=== PATIENT | male | born 1935 | race Caucasian/White ===

== ENCOUNTER 2025-04-09 20:15 | Inpatient (IN) | payer MEDICARE ==
[~2025-04-09] VITALS: Ht 172.7 cm; Wt 73.5 kg
[~2025-04-09 20:15] MED LIST: ACET500 PO; AMOCLA875 PO; ASPI81CH PO; ATOR40TA PO; CLOP75 PO; DOCUZEN 8.6-501 EACH PO; FURO40 PO; Flomax0.4 MG PO; LEVO750 PO; Lisinopril2.5 MG; MIRALAX17 GM PO; NITR100 PO; Norco 5-325 Ta1 EACH PO; OMEG1CAP30; PANT20 PO; PANT40 PO; TAMS.4ER PO; VISBIOME 112.51 EACH PO
[2025-04-09] MEDS ORDERED: NS 500 ML IV SCH (20:40)
[2025-04-09 20:43] LABS: BASOPHILS ABSOLUTE AUTO 0.03 K/mm3 (0.00-0.23); BASOPHILS PERCENT AUTO 0 % (0-2); EOSINOPHILS ABSOLUTE AUTO 0.00 K/mm3 (0.00-0.68); EOSINOPHILS PERCENT AUTO 0 % (0-6); Hematocrit 35.4 % (37.0-53.0); Hemoglobin 12.1 g/dL (13.5-17.5); IMMATURE GRAN ABSOLUTE AUTO 0.26 K/mm3 (0.00-0.10); IMMATURE GRAN PERCENT AUTO 1 % (0-1); LYMPHOCYTES ABSOLUTE AUTO 0.50 K/mm3 (0.84-5.20); LYMPHOCYTES PERCENT AUTO 2 % (21-46); MONOCYTES ABSOLUTE AUTO 1.46 K/mm3 (0.16-1.47); MONOCYTES PERCENT AUTO 7 % (4-13); Mean Corpuscular HGB Conc 34.2 g/dL (31.5-36.5); Mean Corpuscular Volume 99 fL (80-100); NEUTROPHILS ABSOLUTE AUTO 19.01 K/mm3 (1.96-9.15); NEUTROPHILS PERCENT AUTO 89 % (41-73); NRBC ABSOLUTE 0.00 K/mm3 (0.00-0.02); NRBC Auto 0.0 /100 WBC (0.0-0.2); Platelet Count 313 K/mm3 (150-400); RDW Coefficient Variation 14.2 % (11.7-14.2); RDW Standard Deviation 51.6 fL (35.1-46.3)
[2025-04-09 21:15] LABS: Magnesium, Blood 2.2 mg/dL (1.6-2.4); Thyroid Stimulating Hormone 1.03 uIU/mL (0.360-4.800)
[2025-04-09 21:32] LABS: Anion Gap 10.0 mmol/L (3-11); Blood Urea Nitrogen 27.0 mg/dL (8-24); CO2, Blood 24.0 mmol/L (21-32); Calcium, Blood 8.9 mg/dL (8.5-10.1); Chloride, Blood 107.0 mmol/L (98-108); Creatinine, Blood 1.37 mg/dL (0.60-1.20); Glucose, Blood 132.0 mg/dL (70-99); Potassium, Blood 4.9 mmol/L (3.5-5.5); Sodium, Blood 136.0 mmol/L (136-145)
[2025-04-09 22:18] LABS: Source, Urine Clean Catch
[2025-04-09 23:03] LABS: Bilirubin, Urine Neg (Neg); Color, Urine Yellow (P-Yellow); Glucose Qualitative, Urine Neg (Neg); Ketones, Urine 2+ (Neg); Leukocyte Esterase, Urine 3+ (Neg); Protein, Urine 3+ (Neg); Specific Gravity, Urine 1.020 (1.003-1.022); Urobilinogen, Urine NORM (Normal)
[2025-04-09] MEDS ORDERED: Doxycycline Hyclate 100 MG in Dextrose 5% 250 ML IV ONE (23:15)
[2025-04-09] MEDS ORDERED: CefTRIAXone Sodium 1,000 MG in NS 100 ML IV ONE (23:15)
[2025-04-09 23:23] LABS: White Blood Cells, Urine TNTC /hpf (0-5)
[2025-04-10] VITALS (7 sets, daily range): BP systolic 98–140; BP diastolic 52–63
[2025-04-10] MEDS ORDERED: NS 1,000 ML IV SCH (02:00)
[2025-04-10 04:51] LABS: BASOPHILS ABSOLUTE AUTO 0.02 K/mm3 (0.00-0.23); BASOPHILS PERCENT AUTO 0 % (0-2); EOSINOPHILS ABSOLUTE AUTO 0.00 K/mm3 (0.00-0.68); EOSINOPHILS PERCENT AUTO 0 % (0-6); Hematocrit 31.4 % (37.0-53.0); Hemoglobin 10.5 g/dL (13.5-17.5); IMMATURE GRAN ABSOLUTE AUTO 0.19 K/mm3 (0.00-0.10); IMMATURE GRAN PERCENT AUTO 1 % (0-1); LYMPHOCYTES ABSOLUTE AUTO 0.39 K/mm3 (0.84-5.20); LYMPHOCYTES PERCENT AUTO 2 % (21-46); MONOCYTES ABSOLUTE AUTO 0.86 K/mm3 (0.16-1.47); MONOCYTES PERCENT AUTO 5 % (4-13); Mean Corpuscular HGB Conc 33.4 g/dL (31.5-36.5); Mean Corpuscular Volume 100 fL (80-100); NEUTROPHILS ABSOLUTE AUTO 14.54 K/mm3 (1.96-9.15); NEUTROPHILS PERCENT AUTO 91 % (41-73); NRBC ABSOLUTE 0.00 K/mm3 (0.00-0.02); NRBC Auto 0.0 /100 WBC (0.0-0.2); Platelet Count 262 K/mm3 (150-400); RDW Coefficient Variation 14.2 % (11.7-14.2); RDW Standard Deviation 51.9 fL (35.1-46.3)
[2025-04-10 05:15] LABS: Alanine Aminotransfer (ALT/SGP 19.0 U/L (12-78); Albumin, Blood 2.3 g/dL (3.4-5.0); Albumin/Globulin Ratio 0.7 (0.8-1.8); Anion Gap 8.0 mmol/L (3-11); Aspartate Aminotrans (AST/SGOT 27.0 U/L (12-37); Bilirubin, Total 0.5 mg/dL (0.1-1.0); Blood Urea Nitrogen 28.0 mg/dL (8-24); CO2, Blood 25.0 mmol/L (21-32); Calcium, Blood 8.1 mg/dL (8.5-10.1); Chloride, Blood 104.0 mmol/L (98-108); Creatinine, Blood 1.3 mg/dL (0.60-1.20); Globulin, Blood 3.5 g/dL (2.2-4.0); Glucose, Blood 159.0 mg/dL (70-99); Potassium, Blood 4.2 mmol/L (3.5-5.5); Sodium, Blood 133.0 mmol/L (136-145); Total Protein, Blood 5.8 g/dL (6.4-8.2)
--- NOTE | 2025-04-10 06:44 | NUR ---
SHIFT SUMMAY; AFTER ADMIT AT 0330. PATIENT ABLE TO EAT A LIGHT MEAL. THEN, SLEPT SOUNDLY THE REST OF THE NIGHT. DID NOT TRY TO GET UP AND
[2025-04-10] MEDS ORDERED: Lactobacil 2-S.Thermo-Bifido 1 1 Cap PO SCH (09:00)
[2025-04-10] MEDS ORDERED: Enoxaparin 40 MG/0.4 ML SYR SC SCH (09:00)
--- NOTE | 2025-04-10 10:48 | NUR ---
OCCUPATIONAL THERAPY CAME AND GOT RN TO REPORT THAT PATIENT'S HEART RATE IS ALL OVER THE PLACE AND HIGH. PATIENT ASSESSED; SITTING IN CHAIR, ALERT, NO SIGNS OR SYMPTOMS OF DISTRESS. DENIES CHEST PAIN, SHORTNESS OF BREATH, DIZZINESS OR LIGHTHEADED. PATIENT DENIES HISTORY OF A FIB OR IRREGULAR HEART RATE. PATIENT BREATHING FAST, BUT STATES NO DIFFICULTY BREATHING. CALL MADE TO DR. ORLANDO AND ADVISED TO PUT PATIENT ON TELE. TELE ORDERED. VITALS OBTAINED.
--- NOTE | 2025-04-10 11:16 | NUR ---
TELE APPLIED TO PT WITH TECH REPORTING AFIB WITH RVR AT 133. WITHIN 5 MINUTES SR. OPERATIONS MANAGER REPORTED PT CONVERTING TO NSR AT 103. DR. ORLANDO NOTIFIED.
--- NOTE | 2025-04-10 12:04 | NUR ---
"Spiritual Care| Pt. request P.t is awake and sitting upin a chair. Pt. is pleasant. As a life review was facilitated this chaplai got called to a Trauma Team Activiation. Immediately afterward this marketing database consultant returned to the Pts. bedside, sat in a chair and continued with his life review. Pt. is pleasant, but does show some deficits occassionally when he froms his thoughts and words. Considered several matters of cate and belief. Pt. displayed evidence of trust during our visit. Prayed with the Pt. and Pt. also prayed. Pt. verbalized gratitude fo rhte spiritual care visit."
--- NOTE | 2025-04-10 17:50 | NUR ---
SHIFT SUMMARY: A&OX3-4, BUT CAN BE FORGETFUL AT TIMES. PLESANT AND COOPERATIVE WITH CARE PROVIDED. PT SEEN BY PT/OT TODAY FOR AN EVALUATION AND IS A 1 PERSON ASSIST TO GET UP OUT OF BED. INTERIANO CATHETER REMAINS IN PLACE AND IS DRAINING TO GRAVITY. URINE IS STILL VERY COUDY. PT HAD ONE CARDIAC EVENT TODAY, SEE PREVIOUS NOTE, AND IS NOW ON TELE. HAS REMAINED SINUS RHYTHM SINCE. CONTINUES TO DENY CHEST PAIN, SHORTNESS OF BREATH, AND GENERALIZED DISCOMFORT. LYING IN BED AT THIS TIME. BED IN THE LOWEST POSITION. CALL LT WITHIN REACH.
[2025-04-10] MEDS ORDERED: NS 250 ML IV PRN (20:10)
[2025-04-10] MEDS ORDERED: CefTRIAXone Sodium 1,000 MG in NS 100 ML IV SCH (21:00)
[2025-04-11] VITALS (7 sets, daily range): BP systolic 111–135; BP diastolic 58–80
[2025-04-11 04:45] LABS: BASOPHILS ABSOLUTE AUTO 0.02 K/mm3 (0.00-0.23); BASOPHILS PERCENT AUTO 0 % (0-2); EOSINOPHILS ABSOLUTE AUTO 0.04 K/mm3 (0.00-0.68); EOSINOPHILS PERCENT AUTO 0 % (0-6); Hematocrit 30.0 % (37.0-53.0); Hemoglobin 10.2 g/dL (13.5-17.5); IMMATURE GRAN ABSOLUTE AUTO 0.12 K/mm3 (0.00-0.10); IMMATURE GRAN PERCENT AUTO 1 % (0-1); LYMPHOCYTES ABSOLUTE AUTO 0.65 K/mm3 (0.84-5.20); LYMPHOCYTES PERCENT AUTO 4 % (21-46); MONOCYTES ABSOLUTE AUTO 1.71 K/mm3 (0.16-1.47); MONOCYTES PERCENT AUTO 10 % (4-13); Mean Corpuscular HGB Conc 34.0 g/dL (31.5-36.5); Mean Corpuscular Volume 99 fL (80-100); NEUTROPHILS ABSOLUTE AUTO 14.43 K/mm3 (1.96-9.15); NEUTROPHILS PERCENT AUTO 85 % (41-73); NRBC ABSOLUTE 0.00 K/mm3 (0.00-0.02); NRBC Auto 0.0 /100 WBC (0.0-0.2); Platelet Count 211 K/mm3 (150-400); RDW Coefficient Variation 14.0 % (11.7-14.2); RDW Standard Deviation 50.4 fL (35.1-46.3)
[2025-04-11 05:00] LABS: Anion Gap 10.0 mmol/L (3-11); Blood Urea Nitrogen 36.0 mg/dL (8-24); CO2, Blood 24.0 mmol/L (21-32); Calcium, Blood 8.1 mg/dL (8.5-10.1); Chloride, Blood 102.0 mmol/L (98-108); Creatinine, Blood 1.23 mg/dL (0.60-1.20); Glucose, Blood 111.0 mg/dL (70-99); Magnesium, Blood 2.1 mg/dL (1.6-2.4); Phosphorus, Blood 2.4 mg/dL (2.5-4.9); Potassium, Blood 4.0 mmol/L (3.5-5.5); Sodium, Blood 132.0 mmol/L (136-145)
--- NOTE | 2025-04-11 06:04 | NUR ---
SHIFT SUMMARY: Pt is admitted for urosepsis and is a full code. Is alert and able to make needs known. ADLs have been 1p but did not get out of bed. Denies pain or discomfort when asked. Iv to right AC is patent with dressing that is CDI. telly noted sinus in the 80s with no events. Cha in place and draining clear yellow urine.
[2025-04-11] MEDS ORDERED: Polyethylene Glycol 3350 17 gm PO SCH (09:00)
--- NOTE | 2025-04-11 09:54 | NUR ---
APPROX. [id number] ENTERED PATIENT ROOM AND NOTICED THAT HIS CONTINOUS PULSE OX WAS READING A HEART RATE OF 120-150'S. CALLED TELEMETRY TO VERIFY THE RHYTHM. TELE UNABLE TO CONFIRM IF SINUS OR A FIB. PATIENT ASYMPTOMATIC VITALS STABLE. CHANGED TELE LEADS AND CONFIRMED THAT PATIENT IS IN A FIB. HEART RATE ON ASCULATION WAS TACHY AND IRREGULAR. NOTIFIED DR. BAXTER.
[2025-04-11] MEDS ORDERED: NS 1,000 ML IV SCH (10:35)
[2025-04-11] MEDS ORDERED: Potassium Phosphate Dibasic 30 MM in Dextrose 5% 500 ML IV STA (10:57)
--- NOTE | 2025-04-11 16:40 | NUR ---
SHIFT SUMMARY: PATIENT WENT BACK INTO AFIB TODAY; SEE NURSE NOTE. PATIENT RECEIVED TWO DOSES OF ORAL DILTIAZEM THIS SHIFT. CURRENTLY A FIB IN THE 80'S. PATIENT IN HIS BED, VISITED WITH FAMILY TODAY, CALL LIGHT WITHIN REACH, NO SIGNS OR SYMPTOMS OF DISTRESS, PLAN OF CARE ONGOING.
--- NOTE | 2025-04-11 23:51 | NUR ---
NEW TELEPHONE ORDER RECEIVED FROM THE ON-CALL HOSPITALIST NP. BREAUX: BACLOFEN PO 5MG Q8HRS PRN. ENTERED TO [facility]Nvoice, SEE EMAR.
[2025-04-12 04:34] VITALS: BP 121/47
[2025-04-12 04:45] LABS: Hematocrit 29.4 % (37.0-53.0); Hemoglobin 10.2 g/dL (13.5-17.5); Mean Corpuscular HGB Conc 34.7 g/dL (31.5-36.5); Mean Corpuscular Volume 96 fL (80-100); NRBC ABSOLUTE 0.00 K/mm3 (0.00-0.02); NRBC Auto 0.0 /100 WBC (0.0-0.2); Platelet Count 252 K/mm3 (150-400); RDW Coefficient Variation 13.8 % (11.7-14.2); RDW Standard Deviation 48.9 fL (35.1-46.3)
[2025-04-12 05:09] LABS: Albumin, Blood 2.0 g/dL (3.4-5.0); Anion Gap 9 mmol/L (3-11); Blood Urea Nitrogen 30 mg/dL (8-24); CO2, Blood 23 mmol/L (21-32); Calcium, Blood 7.9 mg/dL (8.5-10.1); Chloride, Blood 102 mmol/L (98-108); Creatinine, Blood 1.06 mg/dL (0.60-1.20); Glucose, Blood 119 mg/dL (70-99); Magnesium, Blood 2.0 mg/dL (1.6-2.4); Phosphorus, Blood 2.8 mg/dL (2.5-4.9); Potassium, Blood 4.0 mmol/L (3.5-5.5); Sodium, Blood 130 mmol/L (136-145)
--- NOTE | 2025-04-12 05:15 | NUR ---
SHIFT SUMMARY NO ACUTE EVENTS DURING THIS SHIFT. PT DENIES PAIN AND DISCOMFORT, CP/PRESSURE. PT HAS INTERMITTENT HICCUPS, NEW ORDER FOR BACLOFEN PRN RECEIVED FROM THE ON-CALL HOSPITALIST. TELE A-FIB @77. PT HAD A MOMENT OF HR>117, PRN CARDIZEM ADMINISTERED ORDERED. HS BOWEL CARE MEDS ADMINISTERED, PT REPORTS PASSING GAS BUT NO BM FOR SEVERAL DAYS. PT IS A/O X3-4, [place], AND SOMETIMES FORGETFUL. PT IS ABLE TO MAKE HIS NEEDS KNOWN AND IS COOPERATIVE WITH CARE. CHRONIC INTERIANO DRAINING YELLOW COLOR URINE. BED AT THE LOWEST POSITION, CALL LIGHT W/I REACH. CONTINUOUS PULSE OX O2>95%, PT DENIES SOB.
[2025-04-12 07:19] VITALS: BP 124/62
[2025-04-12 11:17] VITALS: BP 141/63
[2025-04-12 15:29] VITALS: BP 131/57
--- NOTE | 2025-04-12 18:55 | NUR ---
SHIFT SUMMARY PATIENT ARRIVED TO MEDICAL FLOOR, PCU TRANSFER. A/O X4. NEW IV STARTED. DID NOT UNWRAP WOUND TO FOOT, DRESSING INTACT. UNDERSTANDS NPO AFTER MIDNIGHT.
[2025-04-12 19:37] VITALS: BP 149/56
--- NOTE | 2025-04-12 21:47 | NUR ---
FIRST DOSE BACLOFEN PRN 5MG ADMINISTERED BY CHIEF CLINICAL DIETITIAN TAMRA AT HS. PT WAS DESCRIBED THIS MED YESTERDAY FOR HICCUPS.
[2025-04-12 23:36] VITALS: BP 141/64
[2025-04-13 02:38] LABS: Source, Urine Clean Catch
[2025-04-13 02:43] LABS: Bilirubin, Urine Neg (Neg); Glucose Qualitative, Urine Neg (Neg); Ketones, Urine Neg (Neg); Leukocyte Esterase, Urine 3+ (Neg); Protein, Urine 2+ (Neg); Specific Gravity, Urine 1.010 (1.003-1.022); Urobilinogen, Urine NORM (Normal)
[2025-04-13 03:20] LABS: Color, Urine Yellow (P-Yellow); White Blood Cells, Urine 25-50 /hpf (0-5)
[2025-04-13 04:11] VITALS: BP 147/63
--- NOTE | 2025-04-13 04:26 | NUR ---
SHIFT SUMMARY NO ACUTE EVENTS DURING THIS SHIFT. PER SOUND ART INSTRUCTOR: PT REMAINS IN SR IN THE MID 80'S TO THIS SHIFT. PT DENIES CP/PRESSURE, AND DENIES GENERAL DISCOMFORT. PT UPSET THAT THE CHRONIC INTERIANO WAS REMOVED, HE WAS UNABLE TO VOID, AND THE INTERIANO WAS INSERTED BACK SOON AFTER, DURING PREVIOUS SHIFT. UA RESULTS PENDING. INTERMITTENT HICCUPS T/O THIS SHIFT. AT HS PAINT MIXER HAND ADMINISTERED FIRST DOSE OF BACLOFEN PRESCRIBED FOR HICCUPS. MILDLY EFECTIVE. VSS. BED AT THE LOWEST POSITION, CALL LIGHT W/I REACH. PT IS A/O X3-4, ABLE TO MAKE HIS NEEDS KNOWN AND COOPERATIVE WITH CARE.
[2025-04-13 05:05] LABS: Hematocrit 27.2 % (37.0-53.0); Hemoglobin 9.5 g/dL (13.5-17.5); Mean Corpuscular HGB Conc 34.9 g/dL (31.5-36.5); Mean Corpuscular Volume 96 fL (80-100); NRBC ABSOLUTE 0.00 K/mm3 (0.00-0.02); NRBC Auto 0.0 /100 WBC (0.0-0.2); Platelet Count 275 K/mm3 (150-400); RDW Coefficient Variation 13.9 % (11.7-14.2); RDW Standard Deviation 49.1 fL (35.1-46.3)
[2025-04-13 05:27] LABS: Anion Gap 9.0 mmol/L (3-11); Blood Urea Nitrogen 27.0 mg/dL (8-24); CO2, Blood 23.0 mmol/L (21-32); Calcium, Blood 8.0 mg/dL (8.5-10.1); Chloride, Blood 105.0 mmol/L (98-108); Creatinine, Blood 1.09 mg/dL (0.60-1.20); Glucose, Blood 113.0 mg/dL (70-99); Potassium, Blood 4.1 mmol/L (3.5-5.5); Sodium, Blood 133.0 mmol/L (136-145)
[2025-04-13 07:13] VITALS: BP 151/65
[2025-04-13] MEDS ORDERED: Diltiazem HCl 180 MG Cap.CD PO SCH (09:00)
[2025-04-13 12:00] VITALS: BP 149/62
[2025-04-13 14:47] VITALS: BP 144/56
--- NOTE | 2025-04-13 16:41 | NUR ---
SHIFT SUMMARY PATIENT ABLE TO SIT IN CHAIR FOR MEALS, WORK WELL WITH PHYSICAL AND OCCUPATIONAL THERAPY. ABLE TO FOLLOW DIRECTIONS AND USES CALL LIGHT APPROPRIATELY. HARD OF HEARING. STEADY WITH AMBULATION, 1 + WALKER. FORGETFUL AT TIMES. INTERIANO INTACT DRAINING FREELY TO GRAVITY. NO BM THIS SHIFT. CALL LIGHT IN REACH. ABLE TO MAKE NEEDS KNOWN.
[2025-04-13 19:11] LABS: MYOGLOBIN SERUM 896 ng/mL (<=72)
[2025-04-13 19:33] VITALS: BP 160/71
[2025-04-13 23:54] VITALS: BP 148/65
[2025-04-14 04:31] VITALS: BP 139/60
--- NOTE | 2025-04-14 04:58 | NUR ---
SHIFT SUMMARY: PT AOX4, [place], CALLS APPROPRIATELY AND ABLE TO MAKE NEEDS KNOWN. PT TOLERATING MEDICATIONS WELL, ONLY NEEDING SOME HELP WITH THE PROBIOTIC PILL. TAKEN OFF OF TELE PER ORDERS. NO ACUTE OVERNIGHT EVENTS. INTERIANO HAVING GOOD OUTPUT. PT COOPERATIVE IN CARE AND APPRECIATIVE. HAVING SOME GOOD PO INTAKE. NO BM THIS PM. PT IN BED RESTING, BED IN LOWEST POSITION, CALL LIGHT IN REACH. CONTINUING CARE.
[2025-04-14 05:10] LABS: Hematocrit 28.7 % (37.0-53.0); Hemoglobin 9.8 g/dL (13.5-17.5); Mean Corpuscular HGB Conc 34.1 g/dL (31.5-36.5); Mean Corpuscular Volume 97 fL (80-100); NRBC ABSOLUTE 0.00 K/mm3 (0.00-0.02); NRBC Auto 0.0 /100 WBC (0.0-0.2); Platelet Count 316 K/mm3 (150-400); RDW Coefficient Variation 14.1 % (11.7-14.2); RDW Standard Deviation 50.4 fL (35.1-46.3)
[2025-04-14 05:29] LABS: Anion Gap 6.0 mmol/L (3-11); Blood Urea Nitrogen 26.0 mg/dL (8-24); CO2, Blood 26.0 mmol/L (21-32); Calcium, Blood 7.9 mg/dL (8.5-10.1); Chloride, Blood 107.0 mmol/L (98-108); Creatinine, Blood 1.09 mg/dL (0.60-1.20); Glucose, Blood 105.0 mg/dL (70-99); Potassium, Blood 4.2 mmol/L (3.5-5.5); Sodium, Blood 135.0 mmol/L (136-145)
[2025-04-14 07:15] VITALS: BP 139/60
[2025-04-14 15:25] VITALS: BP 130/63
--- NOTE | 2025-04-14 17:32 | NUR ---
SHIFT SUMMARY: PT A&O X4. PLEASANT AND COOPERATIVE WITH CARE. ONE PERSON ASSIST c FWW TO RESTROOM AND RECLINER. PT HAS CHRONIC INTERIANO IN PLACE DRAINING YELLOW URINE TO GRAVITY. WHILE WORKING WITH PT/OT, PT HR JUMPED TO 130'S - 150'S. PT ASYMPTOMATIC AT TIME OF TACHYCARDIA. PT ACCEPTED TO [facility] BUT AWAITING INSURANCE AUTH. CALL LIGHT IN REACH. BED IN LOWEST POSITION.
[2025-04-14 20:03] VITALS: BP 122/66
--- NOTE | 2025-04-15 05:06 | NUR ---
SHIFT SUMMARY A&OX4. ABLE TO MAKE ALL NEEDS KNOWN. INTERIANO CATHETER PATENT AND DRAINING TO GRAVITY. PT WAS ABLE TO TRANSFER WITH FWW AND 1 PERSON SBA FROM CHAIR TO BED AT START OF SHIFT. O2 SATS DROPPED FOR SHORT PERIOD OF TIME TO HIGH 80'S AND HOB ELEVATED. O2 SATS HAVE REMAINED IN MID TO HIGH 90'S EVER SINCE. PT HAS BEEN RESTING AND IS CURRENTLY SLEEPING IN BED AT LOWEST POSITION WITH CALL LIGHT WITHIN REACH.
[2025-04-15 05:39] VITALS: BP 138/64
[2025-04-15 08:06] LABS: CK TOTAL 923 U/L (39-308); CK-BB 0 % (0-0); CK-MACRO TYPE I 0 % (0-0); CK-MACRO TYPE II 0 % (0-0); CK-MB 0 % (0-4); CK-MM 100 % (96-100)
[2025-04-15 08:51] VITALS: BP 146/68
--- NOTE | 2025-04-15 16:29 | NUR ---
pPt. is awake and welcomes my visit. Pt. is pleasant and as we got re-aquainted we considered many matters of cate and belief. Pt is enaged and aware. Listen with interest and empathy. Pt. displayed evidence of trust. Prayed for the Pt. Pt. verbalized gratitude for the spiritual care visit.
--- NOTE | 2025-04-15 17:48 | NUR ---
SHIFT SUMMARY: PT A&O X4. PLEASANT AND COOPERATIVE WITH CARE. 1PA c FWW AND GB. PT/OT WORKED WITH PT THIS SHIFT. PER PHYSICAL THERAPY, PT IMPULSIVE WHEN WALKING. NO ACUTE CHANGES THIS SHIFT. PT STILL AWAITING D/C TO [facility]. AWAITING INSURANCE AUTH. INTERIANO IN PLACE DRAINING YELLOW URINE TO GRAVITY. CALL LIGHT IN REACH. BED IN LOWEST POSITION.
[2025-04-15 18:01] VITALS: BP 151/65
[2025-04-15 19:42] VITALS: BP 131/59
[2025-04-16 05:07] VITALS: BP 142/60
--- NOTE | 2025-04-16 06:46 | NUR ---
SHIFT SUMMARY: Pt is admitted for urosepsis and is a full code. Is alert and able to make needs known. ADLs have been SBA. denies pain or discomfort when asked. Cha is patent and draining clear yellow urine. IV to right forearm is patent with dressing that is CDI.
[2025-04-16 07:12] VITALS: BP 144/63
[2025-04-16 15:46] VITALS: BP 144/60
--- NOTE | 2025-04-16 19:27 | NUR ---
SHIFT SUMMARY CLIENT IS AOX4. MEDICATION COMPLIANT. NO COMPLAINTS OF PAIN THIS SHIFT. UP TO CHAIR FOR MEALS. BED IS IN LOW POSITION AND CALLIGHT IS WITHIN REACH
[2025-04-16 19:34] VITALS: BP 139/57
[2025-04-17 04:23] VITALS: BP 110/46
[2025-04-17 06:57] VITALS: BP 144/64
--- NOTE | 2025-04-17 11:08 | NUR ---
Pt. is awake in bed [facility] [employer] when he welcomes my visit. Pt. is pleasant. Pt. verbalizes the expectation that he will be transferring to [facility]. This clinical microbiologist provided encouragement and sought to normalize the Pt. experience. Pt. is unsettled by the prospect that he will ultimately be dicharged from [facility] with a cathater. Pt. welcomed prayer. Prayed with Pt. by the hand. Pt. verbalized gratitude for the spiritual care visit and prayer.
[2025-04-17] MEDS ORDERED: CIPR500 PO (11:18)
[2025-04-17] MEDS ORDERED: DILT180 PO (11:19)
--- NOTE | 2025-04-17 12:36 | NUR ---
PT DISCHARGED VIA MEDICAL TRANSPORT TO [facility]
--- NOTE | 2025-04-17 13:41 | NUR ---
DISCHARGE SUMMARY CLIENT AOX3-4. MEDICATION COMPLIANT. NO COMPLAINTS OF PAIN. DISCHARGE ORDERS RECEIVED. IV DISCONTINUED. CONT PULSE OX DISCONTINUED. MED LIST FAXED TO [facility]. CLIENT PROPERTY AND DISCHARGE PACKET GIVEN TO [facility] WIRE MILL OPERATOR. CLIENT OFF OF THE UNIT VIA WHEELCHAIR.
== END 2025-04-17 12:52 | DRG 698 ==
LOC: ER 20:15 → MEDS 20:16 → ENPENDDIS 04-17 10:53 → MEDS 04-17 12:52
PROVIDERS: Emergency Medicine; Internal Medicine; Student in an Organized Health Care Education/Training Program; ADMIT Student in an Organized Health Care Education/Training Program
PROC: 0T9B70Z Drainage of Bladder with Drainage Device, Via Natural or Artificial Opening (ICD-10-PCS; principal; 2025-04-10)
PROC: 3E03329 Introduction of Other Anti-infective into Peripheral Vein, Percutaneous Approach (ICD-10-PCS; 2025-04-10)
DX: T83.511A Infection and inflammatory reaction due to indwelling urethral catheter, initial encounter (principal); A41.9 Sepsis, unspecified organism; R65.20 Severe sepsis without septic shock; N17.9 Acute kidney failure, unspecified; E87.1 Hypo-osmolality and hyponatremia; E87.21 Acute metabolic acidosis; M62.82 Rhabdomyolysis; Y84.6 Urinary catheterization as the cause of abnormal reaction of the patient, or of later complication, without mention of misadventure at the time of the procedure; Y92.89 Other specified places as the place of occurrence of the external cause; Z87.442 Personal history of urinary calculi; I48.0 Paroxysmal atrial fibrillation; E83.39 Other disorders of phosphorus metabolism; N40.1 Benign prostatic hyperplasia with lower urinary tract symptoms; R33.8 Other retention of urine; Z91.81 History of falling; Z79.899 Other long term (current) drug therapy; R54 Age-related physical debility; Z51.5 Encounter for palliative care; I25.2 Old myocardial infarction; R62.7 Adult failure to thrive; Z68.25 Body mass index [BMI] 25.0-25.9, adult
CPT/HCPCS: 36415; 51702; 70450; 71045; 72125; 80048; 80053; 80069; 81001; 82550; 82552; 82607; 83605; 83735; 83874; 84100; 84439; 84443; 85025; 85027; 87040; 87077; 87086; 87186; 93005; 93010; 93306; 94762; 96361; 96365; 96366; 96367; 96372; 97110; 97112; 97116; 97161; 97165; 97530; 97535; 99285-25; A9270; G0378; J0696; J1650; J7030; J7050; J7060; L0160

== ENCOUNTER 2025-05-03 08:08 | Emergency (ER) | payer MEDICARE ==
[~2025-05-03] VITALS: Ht 182.9 cm; Wt 73.9 kg
[~2025-05-03 08:08] MED LIST changes: +CIPR500 PO; +DILT180 PO
[2025-05-03 08:37] LABS: Source, Urine Foley catheter
[2025-05-03 08:48] LABS: Bilirubin, Urine Neg (Neg); Glucose Qualitative, Urine Neg (Neg); Ketones, Urine Neg (Neg); Leukocyte Esterase, Urine 3+ (Neg); Protein, Urine 3+ (Neg); Specific Gravity, Urine 1.010 (1.003-1.022); Urobilinogen, Urine NORM (Normal)
[2025-05-03 08:57] LABS: Color, Urine Pale Yellow (P-Yellow)
[2025-05-03 08:58] LABS: Red Blood Cells, Urine 50-100 /hpf (0-2); White Blood Cells, Urine 50-100 /hpf (0-5)
[2025-05-03 10:00] LABS: BASOPHILS ABSOLUTE AUTO 0.03 K/mm3 (0.00-0.23); BASOPHILS PERCENT AUTO 0 % (0-2); EOSINOPHILS ABSOLUTE AUTO 0.04 K/mm3 (0.00-0.68); EOSINOPHILS PERCENT AUTO 0 % (0-6); Hematocrit 38.9 % (37.0-53.0); Hemoglobin 13.1 g/dL (13.5-17.5); IMMATURE GRAN ABSOLUTE AUTO 0.05 K/mm3 (0.00-0.10); IMMATURE GRAN PERCENT AUTO 1 % (0-1); LYMPHOCYTES ABSOLUTE AUTO 0.30 K/mm3 (0.84-5.20); LYMPHOCYTES PERCENT AUTO 3 % (21-46); MONOCYTES ABSOLUTE AUTO 1.01 K/mm3 (0.16-1.47); MONOCYTES PERCENT AUTO 10 % (4-13); Mean Corpuscular HGB Conc 33.7 g/dL (31.5-36.5); Mean Corpuscular Volume 97 fL (80-100); NEUTROPHILS ABSOLUTE AUTO 8.42 K/mm3 (1.96-9.15); NEUTROPHILS PERCENT AUTO 86 % (41-73); NRBC ABSOLUTE 0.00 K/mm3 (0.00-0.02); NRBC Auto 0.0 /100 WBC (0.0-0.2); Platelet Count 336 K/mm3 (150-400); RDW Coefficient Variation 14.3 % (11.7-14.2); RDW Standard Deviation 51.6 fL (35.1-46.3)
[2025-05-03 10:20] LABS: Alanine Aminotransfer (ALT/SGP 23.0 U/L (12-78); Albumin, Blood 3.2 g/dL (3.4-5.0); Albumin/Globulin Ratio 0.8 (0.8-1.8); Anion Gap 9.0 mmol/L (3-11); Aspartate Aminotrans (AST/SGOT 24.0 U/L (12-37); Bilirubin, Total 0.6 mg/dL (0.1-1.0); Blood Urea Nitrogen 13.0 mg/dL (8-24); CO2, Blood 25.0 mmol/L (21-32); Calcium, Blood 8.8 mg/dL (8.5-10.1); Chloride, Blood 99.0 mmol/L (98-108); Creatinine, Blood 1.1 mg/dL (0.60-1.20); Globulin, Blood 4.2 g/dL (2.2-4.0); Glucose, Blood 115.0 mg/dL (70-99); Potassium, Blood 4.3 mmol/L (3.5-5.5); Sodium, Blood 129.0 mmol/L (136-145); Total Protein, Blood 7.4 g/dL (6.4-8.2)
[2025-05-03] MEDS ORDERED: CefTRIAXone Sodium 1,000 MG in NS 100 ML IV ONE (10:40)
[2025-05-03] MEDS ORDERED: CIPR500 PO (10:43)
[2025-05-03] MEDS ORDERED: Ciprofloxacin 400MG/D5 200ML 200 ML IV ONE (10:45)
[2025-05-03 12:15] VITALS: BP 172/76
== END 2025-05-03 12:35 | disposition home or self-care (01) ==
LOC: ER 08:08
PROVIDERS: Student in an Organized Health Care Education/Training Program
DX: R33.9 Retention of urine, unspecified (principal); T83.511A Infection and inflammatory reaction due to indwelling urethral catheter, initial encounter; N39.0 Urinary tract infection, site not specified; Y84.6 Urinary catheterization as the cause of abnormal reaction of the patient, or of later complication, without mention of misadventure at the time of the procedure; R31.9 Hematuria, unspecified; R80.9 Proteinuria, unspecified; R82.998 Other abnormal findings in urine; E87.1 Hypo-osmolality and hyponatremia; D64.9 Anemia, unspecified; D72.820 Lymphocytosis (symptomatic); I25.2 Old myocardial infarction; I48.0 Paroxysmal atrial fibrillation; Z79.899 Other long term (current) drug therapy; Z79.82 Long term (current) use of aspirin
CPT/HCPCS: 51702; 80053; 81001; 83690; 85025; J0744

== ENCOUNTER → 2025-06-01 | Outpatient (CLI) | payer MEDICARE ==
[~2025-06-01] MED LIST changes: +ACET325 PO; +BISA10S PR; +DULCOLAX400 MG/5 M PO; +LOPE2C PO; +MYLANTA MAXIMUM10 ML PO; +ZINC OXIDE57 GM TOP
[2025-06-01 18:14] LABS: Bilirubin, Urine Neg (Neg); Glucose Qualitative, Urine Neg (Neg); Ketones, Urine Neg (Neg); Leukocyte Esterase, Urine 3+ (Neg); Protein, Urine 1+ (Neg); Specific Gravity, Urine 1.005 (1.003-1.022); Urobilinogen, Urine NORM (Normal)
[2025-06-01 18:24] LABS: Color, Urine Pale Yellow (P-Yellow); Red Blood Cells, Urine 0-2 /hpf (0-2); White Blood Cells, Urine TNTC /hpf (0-5)
== END ==
LOC: LAB SHORT 15:42 → LAB 15:42
PROVIDERS: Registered Nurse
DX: N39.0 Urinary tract infection, site not specified (principal)
CPT/HCPCS: 81001; 87077; 87086; 87186

== ENCOUNTER 2025-06-03 16:37 | Inpatient (IN) | payer MEDICARE ==
[~2025-06-03] VITALS: Ht 182.9 cm; Wt 50.0 kg
[~2025-06-03 16:37] MED LIST changes: -ACET325 PO; -BISA10S PR; -DULCOLAX400 MG/5 M PO; -LOPE2C PO; -MYLANTA MAXIMUM10 ML PO; -ZINC OXIDE57 GM TOP
[2025-06-03 18:02] LABS: BASOPHILS ABSOLUTE AUTO 0.02 K/mm3 (0.00-0.23); BASOPHILS PERCENT AUTO 0 % (0-2); EOSINOPHILS ABSOLUTE AUTO 0.06 K/mm3 (0.00-0.68); EOSINOPHILS PERCENT AUTO 1 % (0-6); Hematocrit 31.6 % (37.0-53.0); Hemoglobin 10.6 g/dL (13.5-17.5); IMMATURE GRAN ABSOLUTE AUTO 0.04 K/mm3 (0.00-0.10); IMMATURE GRAN PERCENT AUTO 1 % (0-1); LYMPHOCYTES ABSOLUTE AUTO 0.59 K/mm3 (0.84-5.20); LYMPHOCYTES PERCENT AUTO 12 % (21-46); MONOCYTES ABSOLUTE AUTO 0.54 K/mm3 (0.16-1.47); MONOCYTES PERCENT AUTO 11 % (4-13); Mean Corpuscular HGB Conc 33.5 g/dL (31.5-36.5); Mean Corpuscular Volume 94 fL (80-100); NEUTROPHILS ABSOLUTE AUTO 3.82 K/mm3 (1.96-9.15); NEUTROPHILS PERCENT AUTO 75 % (41-73); NRBC ABSOLUTE 0.00 K/mm3 (0.00-0.02); NRBC Auto 0.0 /100 WBC (0.0-0.2); Platelet Count 376 K/mm3 (150-400); RDW Coefficient Variation 14.6 % (11.7-14.2); RDW Standard Deviation 50.4 fL (35.1-46.3)
[2025-06-03 18:27] LABS: Alanine Aminotransfer (ALT/SGP 23.0 U/L (12-78); Albumin, Blood 3.3 g/dL (3.4-5.0); Albumin/Globulin Ratio 0.9 (0.8-1.8); Anion Gap 9.0 mmol/L (3-11); Aspartate Aminotrans (AST/SGOT 21.0 U/L (12-37); Bilirubin, Total 0.3 mg/dL (0.1-1.0); Blood Urea Nitrogen 11.0 mg/dL (8-24); CO2, Blood 26.0 mmol/L (21-32); Calcium, Blood 8.6 mg/dL (8.5-10.1); Chloride, Blood 98.0 mmol/L (98-108); Creatinine, Blood 1.12 mg/dL (0.60-1.20); Globulin, Blood 3.5 g/dL (2.2-4.0); Glucose, Blood 105.0 mg/dL (70-99); Potassium, Blood 4.6 mmol/L (3.5-5.5); Sodium, Blood 128.0 mmol/L (136-145); Total Protein, Blood 6.8 g/dL (6.4-8.2)
[2025-06-03] MEDS ORDERED: Lidocaine HCl 2% Jelly 120MG/6ML SYR (20MG PER ML) UR STA (21:45)
[2025-06-03] MEDS ORDERED: Piperacillin/Tazobactam Sod 3.375 GM in NS 100 ML IV ONE (22:35)
[2025-06-03 23:03] LABS: Source, Urine Foley catheter
[2025-06-03] MEDS ORDERED: Ondansetron HCl 2 MG / ML 2ML Vial IV PRN (23:15)
[2025-06-03 23:18] LABS: Bilirubin, Urine Neg (Neg); Glucose Qualitative, Urine Neg (Neg); Ketones, Urine Neg (Neg); Leukocyte Esterase, Urine 3+ (Neg); Protein, Urine 2+ (Neg); Specific Gravity, Urine 1.010 (1.003-1.022); Urobilinogen, Urine NORM (Normal)
[2025-06-03 23:25] LABS: Color, Urine Yellow (P-Yellow)
[2025-06-03 23:26] LABS: White Blood Cells, Urine TNTC /hpf (0-5)
--- NOTE | 2025-06-04 00:36 | NUR ---
ADMIT NOTE RECEIVED REPORT FROM RN ANNETTA IN ER FOR PT ADMIT FOR THIS RN TO TAKE OVER PT CARE.
[2025-06-04 00:51] VITALS: BP 147/65
[2025-06-04] MEDS ORDERED: NS 1,000 ML IV SCH (02:00)
[2025-06-04 04:15] VITALS: BP 143/70
--- NOTE | 2025-06-04 05:43 | NUR ---
SHIFT SUMMARY ASSUMED PT CARE FROM ER. PT A&OX4 WITH INTERMITTENT FORGETFULLNESS. ABLE TO MAKE ALL NEEDS KNOWN. [place]. INTERIANO CATHETER PATENT AND DRAINING YELLOW URINE WITH SEDIMENT NOTED. PT HAD SOME BLEEDING IN AVA AREA THAT APPEARS TO BE IRRITATION FROM CATHETER INSERTION AND PT STATES HE HAD PRESSURE AND "PUSHED HARD" WELL. PERICARE PERFORMED AND RECOMMENDED PT CALL IF HE FEELS THAT PRESSURE AGAIN INSTEAD OF PUSHING HARD, TO AVOID THIS HAPPENING AGAIN. PT V/U. PT REPOSITIONED AND EDUCATED ON IMPORTANCE OF POSITIONING OF CATHETER TO ALLOW IT TO DRAIN AND AVOID THAT PRESSURE FEELING. PT V/U. PT CURRENTLY RESTING IN BED AT LOWEST POSITION WITH RAILS X2 AND CALL LIGHT WITHIN REACH.
[2025-06-04] MEDS ORDERED: Piperacillin/Tazobactam Sod 4.5 GM in NS 100 ML IV SCH (06:00)
[2025-06-04 06:12] LABS: BASOPHILS ABSOLUTE AUTO 0.01 K/mm3 (0.00-0.23); BASOPHILS PERCENT AUTO 0 % (0-2); EOSINOPHILS ABSOLUTE AUTO 0.08 K/mm3 (0.00-0.68); EOSINOPHILS PERCENT AUTO 2 % (0-6); Hematocrit 27.6 % (37.0-53.0); Hemoglobin 9.4 g/dL (13.5-17.5); IMMATURE GRAN ABSOLUTE AUTO 0.03 K/mm3 (0.00-0.10); IMMATURE GRAN PERCENT AUTO 1 % (0-1); LYMPHOCYTES ABSOLUTE AUTO 0.49 K/mm3 (0.84-5.20); LYMPHOCYTES PERCENT AUTO 11 % (21-46); MONOCYTES ABSOLUTE AUTO 0.55 K/mm3 (0.16-1.47); MONOCYTES PERCENT AUTO 13 % (4-13); Mean Corpuscular HGB Conc 34.1 g/dL (31.5-36.5); Mean Corpuscular Volume 93 fL (80-100); NEUTROPHILS ABSOLUTE AUTO 3.23 K/mm3 (1.96-9.15); NEUTROPHILS PERCENT AUTO 74 % (41-73); NRBC ABSOLUTE 0.00 K/mm3 (0.00-0.02); NRBC Auto 0.0 /100 WBC (0.0-0.2); Platelet Count 319 K/mm3 (150-400); RDW Coefficient Variation 14.5 % (11.7-14.2); RDW Standard Deviation 48.5 fL (35.1-46.3)
[2025-06-04 06:13] LABS: Alanine Aminotransfer (ALT/SGP 18.0 U/L (12-78); Albumin, Blood 2.7 g/dL (3.4-5.0); Albumin/Globulin Ratio 0.9 (0.8-1.8); Anion Gap 9.0 mmol/L (3-11); Aspartate Aminotrans (AST/SGOT 17.0 U/L (12-37); Bilirubin, Total 0.3 mg/dL (0.1-1.0); Blood Urea Nitrogen 10.0 mg/dL (8-24); CO2, Blood 25.0 mmol/L (21-32); Calcium, Blood 7.7 mg/dL (8.5-10.1); Chloride, Blood 104.0 mmol/L (98-108); Creatinine, Blood 1.0 mg/dL (0.60-1.20); Globulin, Blood 2.9 g/dL (2.2-4.0); Glucose, Blood 88.0 mg/dL (70-99); Magnesium, Blood 2.0 mg/dL (1.6-2.4); Potassium, Blood 3.9 mmol/L (3.5-5.5); Sodium, Blood 134.0 mmol/L (136-145); Total Protein, Blood 5.6 g/dL (6.4-8.2)
[2025-06-04 07:54] VITALS: BP 140/64
[2025-06-04] MEDS ORDERED: Lactobacil 2-S.Thermo-Bifido 1 1 Cap PO SCH (09:00)
[2025-06-04 16:40] VITALS: BP 158/73
[2025-06-04 20:06] VITALS: BP 135/72
[2025-06-04] MEDS ORDERED: Miconazole Nitrate 28 GM CREAM..G. TOP SCH (21:00)
[2025-06-05 04:01] VITALS: BP 156/74
[2025-06-05 05:38] LABS: BASOPHILS ABSOLUTE AUTO 0.03 K/mm3 (0.00-0.23); BASOPHILS PERCENT AUTO 1 % (0-2); EOSINOPHILS ABSOLUTE AUTO 0.08 K/mm3 (0.00-0.68); EOSINOPHILS PERCENT AUTO 2 % (0-6); Hematocrit 27.5 % (37.0-53.0); Hemoglobin 9.2 g/dL (13.5-17.5); IMMATURE GRAN ABSOLUTE AUTO 0.02 K/mm3 (0.00-0.10); IMMATURE GRAN PERCENT AUTO 0 % (0-1); LYMPHOCYTES ABSOLUTE AUTO 0.49 K/mm3 (0.84-5.20); LYMPHOCYTES PERCENT AUTO 10 % (21-46); MONOCYTES ABSOLUTE AUTO 0.58 K/mm3 (0.16-1.47); MONOCYTES PERCENT AUTO 12 % (4-13); Mean Corpuscular HGB Conc 33.5 g/dL (31.5-36.5); Mean Corpuscular Volume 94 fL (80-100); NEUTROPHILS ABSOLUTE AUTO 3.72 K/mm3 (1.96-9.15); NEUTROPHILS PERCENT AUTO 76 % (41-73); NRBC ABSOLUTE 0.00 K/mm3 (0.00-0.02); NRBC Auto 0.0 /100 WBC (0.0-0.2); Platelet Count 336 K/mm3 (150-400); RDW Coefficient Variation 14.6 % (11.7-14.2); RDW Standard Deviation 50.0 fL (35.1-46.3)
[2025-06-05 06:26] LABS: Alanine Aminotransfer (ALT/SGP 14.0 U/L (12-78); Albumin, Blood 2.6 g/dL (3.4-5.0); Albumin/Globulin Ratio 0.9 (0.8-1.8); Anion Gap 8.0 mmol/L (3-11); Aspartate Aminotrans (AST/SGOT 12.0 U/L (12-37); Bilirubin, Total 0.5 mg/dL (0.1-1.0); Blood Urea Nitrogen 8.0 mg/dL (8-24); CO2, Blood 25.0 mmol/L (21-32); Calcium, Blood 7.9 mg/dL (8.5-10.1); Chloride, Blood 105.0 mmol/L (98-108); Creatinine, Blood 1.12 mg/dL (0.60-1.20); Globulin, Blood 3.0 g/dL (2.2-4.0); Glucose, Blood 81.0 mg/dL (70-99); Potassium, Blood 4.1 mmol/L (3.5-5.5); Sodium, Blood 134.0 mmol/L (136-145); Total Protein, Blood 5.6 g/dL (6.4-8.2)
--- NOTE | 2025-06-05 06:27 | NUR ---
TRAFFIC ANALYST SUMMARY PT A/OX4 WITH SOME FORGETFULNESS. PT HERE FOR UTI POSITIVE FOR PSUEDOMONAS. PT HAVING INCREASED URINE OUTPUT OVERNIGHT. URINE IS NOW A LIGHT YELLOW WITH HEAVY SEDIMENT. PT CONTINUES FEEL SLIGHT INTERMITTANT BLADDER PRESSURE. APPETITE IS POOR; PT DID NOT EAT ANY DINNER. NUTRITION/HYDRATION ENCOURAGED. REGULAR INTERVAL ROUNDING DONE T/O THE SHIFT. CALL LIGHT ACCESSIBLE. PT ABLE TO MAKE NEEDS KNOWN.
[2025-06-05 07:16] VITALS: BP 148/71
[2025-06-05 17:01] VITALS: BP 148/78
--- NOTE | 2025-06-05 18:30 | NUR ---
SHIFT SUMMARY PT CONT LEVEL OF CARE PT NOTED TO BE A&OX4 AND AX1 WITH FWW. PLAN IS TO CONT WITH IV ABX D/T UTI. INTERIANO CONT TO REMAIN IN PLACE DRAINING TO GRAVITY URINE NOTED TO BE YELLOW IN COLOR.
[2025-06-05 19:20] VITALS: BP 115/59
--- NOTE | 2025-06-06 03:10 | NUR ---
SHIFT SUMMARY: AOX4, BUT [place]. VSS. AMBULATES WITH SBA AND FWW. CHRONIC INTERIANO IN PLACE, PALE YELLOW. REDNESS TO GROIN, CREAM APPLIED PER eMAR. RECIEVING IV ABX PER eMAR. CALL LIGHT IS WITHIN REACH. BED IS LOW AND LOCKED.
[2025-06-06 03:58] VITALS: BP 145/70
[2025-06-06 04:49] LABS: BASOPHILS ABSOLUTE AUTO 0.04 K/mm3 (0.00-0.23); BASOPHILS PERCENT AUTO 1 % (0-2); EOSINOPHILS ABSOLUTE AUTO 0.14 K/mm3 (0.00-0.68); EOSINOPHILS PERCENT AUTO 2 % (0-6); Hematocrit 27.6 % (37.0-53.0); Hemoglobin 9.2 g/dL (13.5-17.5); IMMATURE GRAN ABSOLUTE AUTO 0.04 K/mm3 (0.00-0.10); IMMATURE GRAN PERCENT AUTO 1 % (0-1); LYMPHOCYTES ABSOLUTE AUTO 0.72 K/mm3 (0.84-5.20); LYMPHOCYTES PERCENT AUTO 12 % (21-46); MONOCYTES ABSOLUTE AUTO 0.72 K/mm3 (0.16-1.47); MONOCYTES PERCENT AUTO 12 % (4-13); Mean Corpuscular HGB Conc 33.3 g/dL (31.5-36.5); Mean Corpuscular Volume 95 fL (80-100); NEUTROPHILS ABSOLUTE AUTO 4.17 K/mm3 (1.96-9.15); NEUTROPHILS PERCENT AUTO 72 % (41-73); NRBC ABSOLUTE 0.00 K/mm3 (0.00-0.02); NRBC Auto 0.0 /100 WBC (0.0-0.2); Platelet Count 336 K/mm3 (150-400); RDW Coefficient Variation 14.8 % (11.7-14.2); RDW Standard Deviation 51.2 fL (35.1-46.3)
[2025-06-06 05:17] LABS: Alanine Aminotransfer (ALT/SGP 14.0 U/L (12-78); Albumin, Blood 2.4 g/dL (3.4-5.0); Albumin/Globulin Ratio 0.8 (0.8-1.8); Anion Gap 9.0 mmol/L (3-11); Aspartate Aminotrans (AST/SGOT 14.0 U/L (12-37); Bilirubin, Total 0.3 mg/dL (0.1-1.0); Blood Urea Nitrogen 10.0 mg/dL (8-24); CO2, Blood 25.0 mmol/L (21-32); Calcium, Blood 7.8 mg/dL (8.5-10.1); Chloride, Blood 106.0 mmol/L (98-108); Creatinine, Blood 1.17 mg/dL (0.60-1.20); Globulin, Blood 3.0 g/dL (2.2-4.0); Glucose, Blood 77.0 mg/dL (70-99); Potassium, Blood 3.9 mmol/L (3.5-5.5); Sodium, Blood 136.0 mmol/L (136-145); Total Protein, Blood 5.4 g/dL (6.4-8.2)
[2025-06-06 07:07] VITALS: BP 147/70
[2025-06-06] MEDS ORDERED: NS 250 ML IV PRN (12:25)
--- NOTE | 2025-06-06 14:32 | NUR ---
MED/REC CONTACTED [facility] TO REQUEST A FAX COPY OF PT MEDICATION LIST. CARE ONGOING.
[2025-06-06] MEDS ORDERED: ACET325 PO (14:55)
[2025-06-06] MEDS ORDERED: ASPI81CH PO (14:56)
[2025-06-06] MEDS ORDERED: MYLANTA MAXIMUM10 ML PO (14:57)
[2025-06-06] MEDS ORDERED: LOPE2C PO (14:58)
[2025-06-06] MEDS ORDERED: ZINC OXIDE57 GM TOP (14:59)
[2025-06-06] MEDS ORDERED: BISA10S PR (15:00)
[2025-06-06] MEDS ORDERED: DULCOLAX400 MG/5 M PO (15:01)
[2025-06-06 16:22] VITALS: BP 152/73
--- NOTE | 2025-06-06 16:44 | NUR ---
PT IS DOING WELL, HE IS AMBULATING WITH WALKER IN ROOM WITH STANDBY ASSIST. HE IS ALERT AND ORIENTED X'S 4 THIS AM. DAUGHTER AT BEDSIDE. LIKELY THE PT WILL RETURN TO PREVIOUS LIVING SITUATION.
--- NOTE | 2025-06-06 18:36 | NUR ---
PT IS A/Ox4. PLEASANT AND COOPERATIVE WITH CARE. HE IS ABLE TO MAKE HIS NEEDS KNOWN WELL WITH HIS CALL LIGHT. HE IS A 1PA W/FWW & GB TO THE BATHROOM. HE HAD TWO LOOSE STOOLS TODAY. HE WAS GIVEN PRUNE JUICE EARLEIR IN THE SHIFT HE REPORTED FEELING CONSTIPATED. IV ABX CONTINUED. NO ACUTE CHANGES THIS SHIFT.
[2025-06-06 19:16] VITALS: BP 135/65
[2025-06-07] VITALS (7 sets, daily range): BP systolic 109–181; BP diastolic 60–75
--- NOTE | 2025-06-07 06:05 | NUR ---
SHIFT SUMMARY: AOX4. VSS. AMBULATES WITH SBA AND FWW. CHRONIC INTERIANO IN PLACE, PATENT, DRAINING BY GRAVITY. RECIEVING IV ABX PER eMAR. CALL LIGHT IS WITHIN REACH. BED IS LOW AND LOCKED.
[2025-06-07 06:20] LABS: BASOPHILS ABSOLUTE AUTO 0.03 K/mm3 (0.00-0.23); BASOPHILS PERCENT AUTO 1 % (0-2); EOSINOPHILS ABSOLUTE AUTO 0.16 K/mm3 (0.00-0.68); EOSINOPHILS PERCENT AUTO 3 % (0-6); Hematocrit 31.2 % (37.0-53.0); Hemoglobin 10.2 g/dL (13.5-17.5); IMMATURE GRAN ABSOLUTE AUTO 0.03 K/mm3 (0.00-0.10); IMMATURE GRAN PERCENT AUTO 1 % (0-1); LYMPHOCYTES ABSOLUTE AUTO 0.77 K/mm3 (0.84-5.20); LYMPHOCYTES PERCENT AUTO 14 % (21-46); MONOCYTES ABSOLUTE AUTO 0.57 K/mm3 (0.16-1.47); MONOCYTES PERCENT AUTO 10 % (4-13); Mean Corpuscular HGB Conc 32.7 g/dL (31.5-36.5); Mean Corpuscular Volume 95 fL (80-100); NEUTROPHILS ABSOLUTE AUTO 4.00 K/mm3 (1.96-9.15); NEUTROPHILS PERCENT AUTO 72 % (41-73); NRBC ABSOLUTE 0.00 K/mm3 (0.00-0.02); NRBC Auto 0.0 /100 WBC (0.0-0.2); Platelet Count 382 K/mm3 (150-400); RDW Coefficient Variation 14.8 % (11.7-14.2); RDW Standard Deviation 51.3 fL (35.1-46.3)
[2025-06-07 06:46] LABS: Alanine Aminotransfer (ALT/SGP 14.0 U/L (12-78); Albumin, Blood 2.7 g/dL (3.4-5.0); Albumin/Globulin Ratio 0.8 (0.8-1.8); Anion Gap 10.0 mmol/L (3-11); Aspartate Aminotrans (AST/SGOT 13.0 U/L (12-37); Bilirubin, Total 0.4 mg/dL (0.1-1.0); Blood Urea Nitrogen 8.0 mg/dL (8-24); CO2, Blood 24.0 mmol/L (21-32); Calcium, Blood 8.5 mg/dL (8.5-10.1); Chloride, Blood 106.0 mmol/L (98-108); Creatinine, Blood 1.12 mg/dL (0.60-1.20); Globulin, Blood 3.4 g/dL (2.2-4.0); Glucose, Blood 84.0 mg/dL (70-99); Potassium, Blood 4.2 mmol/L (3.5-5.5); Sodium, Blood 136.0 mmol/L (136-145); Total Protein, Blood 6.1 g/dL (6.4-8.2)
[2025-06-07] MEDS ORDERED: HydrALAZINE HCl 20 MG / ML 1ML Vial IV ONE (09:00)
[2025-06-07] MEDS ORDERED: Zinc Oxide Ointment 30 GM TOP PRN (11:50)
[2025-06-07] MEDS ORDERED: Magnesium Hydroxide Conc 10 ML UDC PO PRN (11:50)
[2025-06-07] MEDS ORDERED: Diltiazem HCl 180 MG Cap.CD PO SCH (12:00)
[2025-06-07] MEDS ORDERED: HydrALAZINE HCl 20 MG / ML 1ML Vial IV PRN (15:00)
--- NOTE | 2025-06-07 16:35 | NUR ---
PT A/Ox4. ABLE TO MAKE NEEDS KNOWN WITH CALL LIGHT. SBA W/FWW & GB. REMAINS ON IV ABX. NO ACUTE CHANGES THIS SHIFT.
[2025-06-07] MEDS ORDERED: Docusate Sodium/Senna 1 Tab PO SCH (21:00)
[2025-06-08 03:38] VITALS: BP 132/64
--- NOTE | 2025-06-08 04:11 | NUR ---
SHIFT SUMMARY: AOX4. VSS. PT AMBULATES SBA WITH FWW. CHRONIC INTERIANO IN PLACE, PATENT AND DRAINING BY GRAVITY. IV ABX GIVEN PER eMAR. DENIES PAIN. CALL LIGHT IS WITHIN REACH. BED IS LOW AND LOCKED.
[2025-06-08 06:20] LABS: BASOPHILS ABSOLUTE AUTO 0.04 K/mm3 (0.00-0.23); BASOPHILS PERCENT AUTO 1 % (0-2); EOSINOPHILS ABSOLUTE AUTO 0.15 K/mm3 (0.00-0.68); EOSINOPHILS PERCENT AUTO 3 % (0-6); Hematocrit 28.1 % (37.0-53.0); Hemoglobin 9.4 g/dL (13.5-17.5); IMMATURE GRAN ABSOLUTE AUTO 0.06 K/mm3 (0.00-0.10); IMMATURE GRAN PERCENT AUTO 1 % (0-1); LYMPHOCYTES ABSOLUTE AUTO 0.63 K/mm3 (0.84-5.20); LYMPHOCYTES PERCENT AUTO 12 % (21-46); MONOCYTES ABSOLUTE AUTO 0.47 K/mm3 (0.16-1.47); MONOCYTES PERCENT AUTO 9 % (4-13); Mean Corpuscular HGB Conc 33.5 g/dL (31.5-36.5); Mean Corpuscular Volume 93 fL (80-100); NEUTROPHILS ABSOLUTE AUTO 4.02 K/mm3 (1.96-9.15); NEUTROPHILS PERCENT AUTO 75 % (41-73); NRBC ABSOLUTE 0.00 K/mm3 (0.00-0.02); NRBC Auto 0.0 /100 WBC (0.0-0.2); Platelet Count 353 K/mm3 (150-400); RDW Coefficient Variation 15.0 % (11.7-14.2); RDW Standard Deviation 51.4 fL (35.1-46.3)
[2025-06-08 06:41] LABS: Alanine Aminotransfer (ALT/SGP 13.0 U/L (12-78); Albumin, Blood 2.5 g/dL (3.4-5.0); Albumin/Globulin Ratio 0.8 (0.8-1.8); Anion Gap 9.0 mmol/L (3-11); Aspartate Aminotrans (AST/SGOT 16.0 U/L (12-37); Bilirubin, Total 0.3 mg/dL (0.1-1.0); Blood Urea Nitrogen 8.0 mg/dL (8-24); CO2, Blood 26.0 mmol/L (21-32); Calcium, Blood 8.3 mg/dL (8.5-10.1); Chloride, Blood 104.0 mmol/L (98-108); Creatinine, Blood 1.13 mg/dL (0.60-1.20); Globulin, Blood 3.1 g/dL (2.2-4.0); Glucose, Blood 93.0 mg/dL (70-99); Potassium, Blood 4.0 mmol/L (3.5-5.5); Sodium, Blood 135.0 mmol/L (136-145); Total Protein, Blood 5.6 g/dL (6.4-8.2)
--- NOTE | 2025-06-08 07:16 | NUR ---
ASSUMED CARE OF PATIENT AT THIS TIME. PATIENT RESTING IN BED, WATHCING TV. PLAN IS TO D/C TODAY.
[2025-06-08 07:19] VITALS: BP 141/66
[2025-06-08] MEDS ORDERED: Polyethylene Glycol 3350 17 gm PO SCH (09:00)
--- NOTE | 2025-06-08 11:34 | NUR ---
SPOKE WITH BARROSOCOLLIN VELOZ (SILVINO), SHE VERBALIZED THEIR TEAM IS NOT ABLE TO DO IV ANTIBIOTICS AT THEIR CARE FACILITY. CASE MANAGEMENT UPDATED.
--- NOTE | 2025-06-08 15:37 | NUR ---
spoke with patients daughter. she is now aware he is discharging today to [facility]
[2025-06-08 16:00] VITALS: BP 140/61
--- NOTE | 2025-06-08 18:16 | NUR ---
DISCHARGE NOTE. PATIENT DISCHARGED TO [facility], TRANSPORTED WITH DAUGHTER. IV REMOVED PRIOR TO D/C. DAUGHTER AND PATIENT REVIEWED PLAN AND MEDICATION PRIOR TO DISCHARGE. PATIENT AND DAUGHTER DENIED QUESTIONS PROIR TO LEAVING.
== END 2025-06-08 17:34 | disposition home health service (06) | DRG 689 ==
LOC: ER 16:37 → MEDS 23:09
PROVIDERS: Student in an Organized Health Care Education/Training Program; ADMIT Student in an Organized Health Care Education/Training Program
PROC: 3E03329 Introduction of Other Anti-infective into Peripheral Vein, Percutaneous Approach (ICD-10-PCS; principal; 2025-06-03)
PROC: 0T2BX0Z Change Drainage Device in Bladder, External Approach (ICD-10-PCS; 2025-06-03)
DX: N30.00 Acute cystitis without hematuria (principal); G92.8 Other toxic encephalopathy; E87.1 Hypo-osmolality and hyponatremia; Z16.39 Resistance to other specified antimicrobial drug; Z66 Do not resuscitate; I48.0 Paroxysmal atrial fibrillation; D64.9 Anemia, unspecified; R29.6 Repeated falls; N40.1 Benign prostatic hyperplasia with lower urinary tract symptoms; R33.8 Other retention of urine; H91.90 Unspecified hearing loss, unspecified ear; I25.2 Old myocardial infarction; Z87.442 Personal history of urinary calculi; Z79.899 Other long term (current) drug therapy; Z79.82 Long term (current) use of aspirin; Z98.890 Other specified postprocedural states
CPT/HCPCS: 36415; 51702; 71046; 80053; 81001; 83735; 85025; 87077; 87086; 87186; 93005; 93010; 97162; 97165; 97530; 99284-25; A9270; J0360; J2543; J7030; J7050

== ENCOUNTER 2025-06-27 12:14 | Emergency (ER) | payer MEDICARE ==
[~2025-06-27] VITALS: Ht 185.4 cm; Wt 96.6 kg
[~2025-06-27 12:14] MED LIST changes: +ACET325 PO; +BISA10S PR; +DULCOLAX400 MG/5 M PO; +LOPE2C PO; +MYLANTA MAXIMUM10 ML PO; +ZINC OXIDE57 GM TOP
[2025-06-27 15:40] LABS: Source, Urine Clean Catch
[2025-06-27 15:47] LABS: Bilirubin, Urine Neg (Neg); Glucose Qualitative, Urine Neg (Neg); Ketones, Urine Neg (Neg); Leukocyte Esterase, Urine 3+ (Neg); Protein, Urine 2+ (Neg); Specific Gravity, Urine 1.010 (1.003-1.022); Urobilinogen, Urine NORM (Normal)
[2025-06-27 15:55] LABS: Color, Urine Pale Yellow (P-Yellow)
[2025-06-27 15:56] LABS: White Blood Cells, Urine 50-100 /hpf (0-5)
[2025-06-27] MEDS ORDERED: Ciprofloxacin 400MG/D5 200ML 200 ML IV ONE (16:05)
[2025-06-27] MEDS ORDERED: CIPR500 PO (16:11)
[2025-06-27 16:47] VITALS: BP 164/66
== END 2025-06-27 17:37 | disposition home or self-care (01) ==
LOC: ER 12:14
PROVIDERS: Physician Assistant
DX: N39.0 Urinary tract infection, site not specified (principal)
CPT/HCPCS: 51702; 51798; 81001; 87086; 99283-25; A9270; J0744

== ENCOUNTER 2025-07-06 10:07 | Inpatient (IN) | payer MEDICARE ==
[~2025-07-06] VITALS: Ht 182.9 cm; Wt 80.7 kg
[~2025-07-06 10:07] MED LIST changes: -DULCOLAX400 MG/5 M PO; +Milk of Magnesia PO
[2025-07-06 10:33] LABS: BASOPHILS ABSOLUTE AUTO 0.03 K/mm3 (0.00-0.23); BASOPHILS PERCENT AUTO 0 % (0-2); EOSINOPHILS ABSOLUTE AUTO 0.04 K/mm3 (0.00-0.68); EOSINOPHILS PERCENT AUTO 0 % (0-6); Hematocrit 27.7 % (37.0-53.0); Hemoglobin 9.7 g/dL (13.5-17.5); IMMATURE GRAN ABSOLUTE AUTO 0.10 K/mm3 (0.00-0.10); IMMATURE GRAN PERCENT AUTO 1 % (0-1); LYMPHOCYTES ABSOLUTE AUTO 0.40 K/mm3 (0.84-5.20); LYMPHOCYTES PERCENT AUTO 2 % (21-46); MONOCYTES ABSOLUTE AUTO 0.91 K/mm3 (0.16-1.47); MONOCYTES PERCENT AUTO 5 % (4-13); Mean Corpuscular HGB Conc 35.0 g/dL (31.5-36.5); Mean Corpuscular Volume 89 fL (80-100); NEUTROPHILS ABSOLUTE AUTO 16.68 K/mm3 (1.96-9.15); NEUTROPHILS PERCENT AUTO 92 % (41-73); NRBC ABSOLUTE 0.00 K/mm3 (0.00-0.02); NRBC Auto 0.0 /100 WBC (0.0-0.2); Platelet Count 482 K/mm3 (150-400); RDW Coefficient Variation 15.5 % (11.7-14.2); RDW Standard Deviation 50.6 fL (35.1-46.3)
[2025-07-06 10:36] LABS: pH Blood Venous 7.39 (7.34-7.37)
[2025-07-06 10:51] LABS: Anion Gap 10.0 mmol/L (3-11); Blood Urea Nitrogen 20.0 mg/dL (8-24); CO2, Blood 24.0 mmol/L (21-32); Calcium, Blood 8.6 mg/dL (8.5-10.1); Chloride, Blood 95.0 mmol/L (98-108); Creatinine, Blood 1.09 mg/dL (0.60-1.20); Glucose, Blood 119.0 mg/dL (70-99); Potassium, Blood 4.0 mmol/L (3.5-5.5); Sodium, Blood 125.0 mmol/L (136-145)
[2025-07-06 11:20] LABS: Influenza A, PCR NEGATIVE (NEGATIVE); Influenza B, PCR NEGATIVE (NEGATIVE); Resp Syncytial Virus, PCR NEGATIVE (NEGATIVE); SARS-Cov-2 (COVID-19) PCR, MMC NEGATIVE (NEGATIVE)
[2025-07-06] MEDS ORDERED: Doxycycline Hyclate 100 MG in Dextrose 5% 250 ML IV ONE (11:35)
[2025-07-06] MEDS ORDERED: CefTRIAXone Sodium 1,000 MG in NS 100 ML IV ONE (11:35)
[2025-07-06] MEDS ORDERED: FLU VACC TS2025(65UP)/MF59C/PF 45 MCG/0.5 ML SYRINGE IM SCH (13:35)
[2025-07-06] MEDS ORDERED: UREA 15 GM POWD.PACK PO ONE (13:45)
[2025-07-06] MEDS ORDERED: MYLANTA MAXIMUM10 ML PO (15:02)
[2025-07-06 16:17] VITALS: BP 129/66
[2025-07-06 16:18] VITALS: BP 129/66
[2025-07-06] MEDS ORDERED: Zinc Oxide Ointment 30 GM TOP PRN (16:35)
[2025-07-06] MEDS ORDERED: Magnesium Hydroxide Conc 10 ML UDC PO PRN (16:35)
[2025-07-06] MEDS ORDERED: FURO20 PO (17:40)
--- NOTE | 2025-07-06 18:40 | NUR ---
END OF SHIFT NOTE PATIENT [place], IN BED RESTING, ASSESSMENT DONE. EDEMA ON BLE. CHRONIC INTERIANO IN PLACE. ABLE TO MAKE NEEDS KNOWN. CONTINIOUS PULSE OX IN PLACE, 4L NC. A&OX3, DAUGHTER IS CONTACT FOR PATIENT AND QUESTIONS. PICTURE OF BUTTOCK TAKEN, BLANCHABLE LARGE RED AREA. PATIENT DENIES NEEDS AT THIS TIME
[2025-07-06 20:47] VITALS: BP 134/61
[2025-07-06] MEDS ORDERED: Docusate Sodium/Senna 1 Tab PO SCH (21:00)
[2025-07-06] MEDS ORDERED: Miconazole Nitrate 2% 85 GM PWD TOP SCH (21:00)
[2025-07-06 23:24] VITALS: BP 130/64
[2025-07-07 03:57] VITALS: BP 118/60
--- NOTE | 2025-07-07 04:28 | NUR ---
SHIFT SUMMARY A&OX3-4. OCCASIONAL FORGETFULLNESS/CONFUSION. ABLE TO MAKE NEEDS KNOWN. DENIES PAIN OR CHEST PAIN. DOES HAVE INCREASED SOB WITH EXCERTION. ABLE TO GET TO BSC FOR LIQUID BM WITH 2 PERSON ASSIST, GB AND FWW. PT ABLE TO AMBULATE WELL BUT DID GET SOB EASILY AND O2 DROPPED TO LOW TO MID 80'S ON 4 LPM O2 VIA NC. ONCE PT BACK TO BED HE RECOVED QUICKLY WHILE AT REST AND ON 4 LPM O2 VIA NC. CONTINUES TO HAVE 4+ PITTING EDEMA TO BLE. SCD'S IN PLACE. NEW 16 FR COUDE PLACED AND DRAINING LIGHT YELLOW URINE TO GRAVITY. PT VERY [place]. BARRIER CREAM APPLIED TO COCCYX AND PT REPOSITIONED WITH PILLOWS. EDUCATED PT ON IMPORTANCE OF REPOSITIONING. CURRENTLY PT RESTING IN BED AT LOWEST POSITION WITH CALL LIGHT WITHIN REACH.
[2025-07-07 06:07] LABS: Hematocrit 26.6 % (37.0-53.0); Hemoglobin 8.8 g/dL (13.5-17.5); Mean Corpuscular HGB Conc 33.1 g/dL (31.5-36.5); Mean Corpuscular Volume 89 fL (80-100); NRBC ABSOLUTE 0.00 K/mm3 (0.00-0.02); NRBC Auto 0.0 /100 WBC (0.0-0.2); Platelet Count 445 K/mm3 (150-400); RDW Coefficient Variation 15.4 % (11.7-14.2); RDW Standard Deviation 50.3 fL (35.1-46.3)
[2025-07-07 06:33] LABS: Anion Gap 10.0 mmol/L (3-11); Blood Urea Nitrogen 28.0 mg/dL (8-24); CO2, Blood 24.0 mmol/L (21-32); Calcium, Blood 8.3 mg/dL (8.5-10.1); Chloride, Blood 99.0 mmol/L (98-108); Creatinine, Blood 1.05 mg/dL (0.60-1.20); Glucose, Blood 113.0 mg/dL (70-99); Potassium, Blood 3.5 mmol/L (3.5-5.5); Sodium, Blood 129.0 mmol/L (136-145)
[2025-07-07] MEDS ORDERED: UREA 15 GM POWD.PACK PO ONE (07:35)
[2025-07-07 07:56] VITALS: BP 149/65
[2025-07-07 08:54] LABS: Ferritin, Serum 501.0 ng/mL (26-388); Total Iron Binding Capacity 176.0 ug/dL (250-450)
[2025-07-07] MEDS ORDERED: Polyethylene Glycol 3350 17 gm PO SCH (09:00)
[2025-07-07] MEDS ORDERED: Enoxaparin 40 MG/0.4 ML SYR SC SCH (09:00)
[2025-07-07] MEDS ORDERED: Lactobacil 2-S.Thermo-Bifido 1 1 Cap PO SCH (09:00)
[2025-07-07] MEDS ORDERED: Iron Dextran 50 MG / ML 2ML Vial IV ONE (10:30)
[2025-07-07 11:48] VITALS: BP 159/66
[2025-07-07 12:22] LABS: Source, Urine Foley catheter
[2025-07-07 12:24] LABS: Bilirubin, Urine Neg (Neg); Glucose Qualitative, Urine Neg (Neg); Ketones, Urine Neg (Neg); Leukocyte Esterase, Urine 3+ (Neg); Protein, Urine 1+ (Neg); Specific Gravity, Urine 1.005 (1.003-1.022); Urobilinogen, Urine NORM (Normal)
[2025-07-07 12:30] LABS: Color, Urine Pale Yellow (P-Yellow)
[2025-07-07] MEDS ORDERED: Iron Dextran 975 MG in NS 250 ML IV ONE (12:30)
[2025-07-07 12:35] LABS: White Blood Cells, Urine 50-100 /hpf (0-5)
[2025-07-07] MEDS ORDERED: CefTRIAXone Sodium 1,000 MG in NS 100 ML IV SCH (14:00)
[2025-07-07] MEDS ORDERED: NS 250 ML IV PRN (15:20)
[2025-07-07 17:34] VITALS: BP 143/69
--- NOTE | 2025-07-07 18:36 | NUR ---
END OF SHIFT NOTE PATIENT RESTING IN BED, DAUGHTER IN TO VISIT AT BEDSIDE, STATES "MORE CONFUSION THE LAST COUPLE WEEKS THAN BEFORE". PATIENT A&OX2. COOPERATIVE WITH CARE, REMINDERS ABOUT OXYGEN, MEDICATIONS AND MEALS. PATIENT [place]. DENIES NEEDS AT THIS MOMENT.
[2025-07-07 21:09] VITALS: BP 137/62
--- NOTE | 2025-07-07 23:17 | NUR ---
RECEIVED REPORT OF PT HAVING A 3 MINUTE RUN OF AFIB. PT DENIES ANY CHEST PAIN/DISCOMFORT. PER PUBLIC SAFETY DISPATCHER THE PT IS BACK IN SR. CALLED HOSPITALIST AND HE RECOMMENDS TO MONITOR AT THIS TIME.
[2025-07-08] VITALS (9 sets, daily range): BP systolic 100–171; BP diastolic 48–81
--- NOTE | 2025-07-08 00:28 | NUR ---
THREAD MACHINE OPERATOR CALLED AND REPORTED PT HAD ANOTHER RUN OF AFIB. HOSPITALIST CALLED. NEW ORDERS RECEIVED TO COLLECT BMP, MAG AND PHOSPORUS LABS NOW AND CALL WHEN THEY ARE COLLECTED.
[2025-07-08 01:22] LABS: Anion Gap 7.0 mmol/L (3-11); Blood Urea Nitrogen 32.0 mg/dL (8-24); CO2, Blood 27.0 mmol/L (21-32); Calcium, Blood 7.9 mg/dL (8.5-10.1); Chloride, Blood 101.0 mmol/L (98-108); Creatinine, Blood 1.07 mg/dL (0.60-1.20); Glucose, Blood 117.0 mg/dL (70-99); Magnesium, Blood 2.0 mg/dL (1.6-2.4); Phosphorus, Blood 3.2 mg/dL (2.5-4.9); Potassium, Blood 3.3 mmol/L (3.5-5.5); Sodium, Blood 132.0 mmol/L (136-145)
[2025-07-08] MEDS ORDERED: Mag Sulfate 1 GM/D5% 100ML 100 ML IV ONE (02:05)
[2025-07-08 06:14] LABS: Anion Gap 9.0 mmol/L (3-11); Blood Urea Nitrogen 27.0 mg/dL (8-24); CO2, Blood 26.0 mmol/L (21-32); Calcium, Blood 8.2 mg/dL (8.5-10.1); Chloride, Blood 101.0 mmol/L (98-108); Creatinine, Blood 1.08 mg/dL (0.60-1.20); Glucose, Blood 108.0 mg/dL (70-99); Potassium, Blood 3.6 mmol/L (3.5-5.5); Sodium, Blood 132.0 mmol/L (136-145)
--- NOTE | 2025-07-08 06:21 | NUR ---
SHIFT SUMMARY A&OX3. INTERMITTENT CONFUSION AND FORGETFULNESS. ABLE TO BE REDIRECTED BUT IRRITABLE. INTERIANO CATHETER PATENT AND DRAINING LIGHT YELLOW URINE. TELE IN PLACE. PT HAD A RUN OF SILAS AND JAMES. HOSPITALIST CALLED AND ORDERED LABS TO BE DRAWN. ONCE LAB RESULTS IN, HOSPITALIST CALLED AGAIN AND ORDERED POTASSIUM CHLORIDE AND MAGNESIUM TO BE INFUSED. PT CONTINUES TO BE ON 4 LPM O2 VIA NC AND O2 SATS REMAIN BETWEEN 93-95%. PT DID REMOVE O2 WHILE SLEEPING AND O2 DROPPED TO 87%. ONCE O2 REAPPLIED O2 SATS INCREASED TO MID 90'S WITHIN 1-2 MINUTES. PT REPORTED NO ADDITIONAL SOB. CURRENTLY PT IS SLEEPING IN BED AT LOWEST POSITION WITH CALL LIGHT WITHIN REACH.
--- NOTE | 2025-07-08 18:40 | NUR ---
END OF SHIFT NOTE PATIENT RESTING IN CHAIR AT BEDSIDE EATING DINNER AND WATCHING TV. 3L O2 IN PLACE, PULSE OX MONITORING, TELE IN PLACE.CALL LIGHT IN REACH, PATIENT DENIES NEEDS AT THIS TIME. PATIENT WORKED WITH PHYSICAL THERAPY TODAY, DR GARCIA AND DAUGHTER DISCUSSED POSSIBLE HOSPICE, PALLATIVE CARE CONSULT ORDERED.
--- NOTE | 2025-07-08 21:06 | NUR ---
ASSUMPTION OF CARE: THIS RN ASSUMED CARE OF PATIENT. AWAKE DURING SHIFT CHANGE REPORT. SITTING UP IN RECLINER. GLASSES ON FACE AND HEARING AID IN LEFT EAR. BREATHING EVEN AND UNLABORED c 3LPM/NC; RA AT BASELINE. SL LAC. CHRONIC INTERIANO PATENT AND DRAINING YELLOW URINE TO GRAVITY. MOST RECENT TELE STRIP IN CHART LABELED SINUS c PVCs AT 85bpm; CLOSELY RESEMBLES AFIB. CALL FROM ETIQUETTE COACH STATING PATIENT WAS TACHING INTO 150s BUT QUICKLY RETURNED. PATIENT LIV[facility] AT [facility]. BED IN LOWEST POSITION. CALL LIGHT WITHIN REACH. ACUTE NEEDS MET.
[2025-07-09 00:18] VITALS: BP 135/53
[2025-07-09 04:36] VITALS: BP 137/51
--- NOTE | 2025-07-09 05:57 | NUR ---
END OF SHIFT SUMMARY: A&Ox3-4. COOPERATIVE WITH CARE. CALLS APPROPRIATELY AND IS ABLE TO ADVOCATE NEEDS EFFECTIVELY. VSS. TELE STRIP IN CHART REVIEWED; ALTERNATING BETWEEN SINUS, AFIB AND SINUS ARRHYTHMIA. BREATHING EVEN AND UNLABORED 3LPM/NC AND MAINTAINING SPO2 >92% PER CONTINUOUS PULSE OX WHEN AT REST. DESATS WITH ANY EXERTION INCLUDING CONVERSING OR TRYING TO SWALLOW MEDS. CONTINENT OF BOWEL; LBM 07/08/25 AM. TOLD DAY NURSES HE HAD LOOSE BOWELS AND REFUSED BOWEL CARE, BUT TOLD NIGHT STAFF HE HAD NOT HAD BM IN SEVERAL DAYS. CHRONIC INTERIANO PATENT AND DRAINING YELLOW URINE TO GRAVITY; LAST CHANGED 07/07/25. TOLERATING DIET THOUGH IS FINICKY EATER. AMBULATES c 1PA & FWW/GB. MEDS WHOLE c FLUIDS x PROBIOTIC OR OTHER LARGE PILLS WHICH HE PREFERS IN APPLESAUCE OR OTHER PUREE. NO ACUTE OVERNIGHT EVENTS ASIDE FROM TELE/RHYTHM CHANGES. PLAN FOR HOME c HH VS HOSPICE; FAMILY WILL MEET WITH PALLIATIVE CARE FOR GOALS OF CARE. BED IN LOWEST POSITION, CALL LIGHT WITHIN REACH, ALL NEEDS MET. REPORT TO ONCOMING NURSE.
[2025-07-09 07:42] VITALS: BP 149/57
[2025-07-09 08:41] LABS: Anion Gap 9.0 mmol/L (3-11); Blood Urea Nitrogen 27.0 mg/dL (8-24); CO2, Blood 28.0 mmol/L (21-32); Calcium, Blood 8.7 mg/dL (8.5-10.1); Chloride, Blood 100.0 mmol/L (98-108); Creatinine, Blood 1.06 mg/dL (0.60-1.20); Glucose, Blood 109.0 mg/dL (70-99); Potassium, Blood 3.9 mmol/L (3.5-5.5); Sodium, Blood 133.0 mmol/L (136-145)
[2025-07-09 11:32] VITALS: BP 140/54
[2025-07-09 11:35] VITALS: BP 140/54
--- NOTE | 2025-07-09 15:44 | NUR ---
PALLIATIVE CARE VISIT: VISIT REQUESTED BY DAUGHTER JAVAD ENQUIRING IF PT QUALIFIES FOR HOSPICE. REVIEWED MEDICAL RECORD AND MADE VISIT WITH PT WHILE HE WAS GETTING PHYSICAL THERAPY. SPOKE TO DAUGHTER ABOUT SIGNS OF DECLINE SHE IS WITNESSING. JAVAD REPORTS HER FATHER HAS HAD "SIGNIFICANT COGNITIVE DECLINE OVER THE LAST 4 MONTHS. HE HAS HAD MANY UTI'S AND HE IS GETTING WEAKER EACH TIME HE COMES TO THE HOSPITAL". SHE REPORTS PT HAS HAD NO SIGNIFICANT WEIGHT LOSS BUT HAS BEEN HAVING WEIGHT GAIN DUE TO EDEMA, HIS HEART FAILURE. 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 OBSERVED PT WORK WITH PT. HE WAS ABLE TO SIT AT BEDSIDE WITHOUT ASSISTANCE. HE DID GET SHORT OF BREATH WITH EXERTION HOWEVER. HIS SATS DROPPED BELOW 90% WHILE ON OXYGEN. PT RECOVERED WITH PURSED LIP BREATHING. PT WAS ABLE TO FOLLOW DIRECTIONS. PRIOR FUNCTIONING WAS IND WITH WALKER. PT HAS INTERIANO CATHETER IN PLACE FOR RETENTION. PT HAS HAD FLUCTUATION WITH WEIGHT. HE WEIGHED 165 lBS IN FEBRUARY 2025. HE NOW WEIGHS 177 LBS. PPS 60%, KPS 50%. PT DOES NOT HAVE OFFICIAL DEMENTIA DIAGNOSIS. BUT IF HE DID HAVE DEMENTIA HIS FAST SCALE WOULD BE 7E. ALBUMIN IS 2.5. RECOMMENDED AND SPOKE TO DAUGHTER AND HOSPITALIST ABOUT RECOMMENDATIONS: OUTPATIENT COGNITIVE EVAL LOW DOSE PROPHYLACTIC ABX FOR UTI PREVENTION PALLIATIVE CARE OUTPATIENT WITH [facility] LOW DOSE PREDNISONE 5 MG FOR SOB, BREATHING DIFFICULTY.
--- NOTE | 2025-07-09 16:34 | NUR ---
SHIFT SUMMARY: PATIENT IS A&OX3-4, CAN GET CONFUSED/BE FORGETFUL, [place]. HE DOES USE HIS CALL LIGHT FOR ASSISTANCE, HE IS A 1 PERSON ASSIST WITH THE FWW. HE HAS A INTERIANO CATHETER THAT WAS NOTED THIS AFTERNOON THAT IT HAD SOME LEAKING; MORE THAN LIKELY URINE PASSING THE CATHETER WHEN PATIENT BEARED DOWN TO VOID EARILER WHEN HE HAD THE URGE TO VOID. PATIENT PASSING GAS, WAS GIVEN BOWEL MEDS, AND CONTINUES TO IV ANITBIOTICS AND DIURESED. HE IS STILL USING 3L N/C O2 MAINTAINING OXYGEN SATURATION AT OR ABOVE 92%. HIS LUNG SOUNDS ARE CLEAR. PATIENT SINUS WITH PACS/PVCS TO A FLUTTER ON TELE. DISCUSSION WITH CASE MANAGEMENT, PALLATIVE, PATIENT AND DAUGHTER HAD TODAY ABOUT HOSPICE VERSUS HOME HEALTH. PATIENT IN HIS ROOM, ALERT, NO SIGNS OR SYMTPTOMS OF DISTRESS, CALL LIGHT WITHIN REACH, PLAN OF CARE ONGOING.
--- NOTE | 2025-07-09 18:01 | NUR ---
REVIEWED STUDENT RN'S DOCUMENTATION COMPLETED OWN CHARTING ON PATIENT.
[2025-07-09 19:43] VITALS: BP 101/78
[2025-07-10 00:04] VITALS: BP 139/66
[2025-07-10 04:50] VITALS: BP 149/67
[2025-07-10 07:43] VITALS: BP 151/74
[2025-07-10] MEDS ORDERED: Torsemide 20 MG TAB PO SCH (09:00)
--- NOTE | 2025-07-10 14:34 | NUR ---
AT 1431 TELE CALLED REPORTING PATIENT WENT INTO A FIB 150'S. LASTED LESS THAN ONE MIN AND WENT BACK INTO SR. CHECKED ON PATIENT; HE STATES "I AM FEELING PRETTY GOOD." CALLED AND NOTIFIED. DR. GARCIA.
--- NOTE | 2025-07-10 16:35 | NUR ---
SHIFT SUMMARY: PATIENT PLANS ON BEING DISCHARGED TOMORROW 07/11/25 BACK TO [place]. HE IS NEEDING TO USE 3 L NC O2 AT REST AND 6L WITH EXERTION. PATIENT DID GO INTO A FIB TODAY; BUT CONVERTED BACK TO SINUS. SEE NURSE NOTE. PATIENT IN HIS ROOM, ALERT, CALL LIGHT WITHIN REACH, NO SIGNS OR SYMPTOMS OF DISTRESS, PLAN OF CARE ONGOING.
[2025-07-10 17:35] VITALS: BP 149/61
[2025-07-10 17:36] VITALS: BP 149/61
[2025-07-10 19:44] VITALS: BP 116/63
[2025-07-11 00:21] VITALS: BP 112/63
--- NOTE | 2025-07-11 04:55 | NUR ---
SHIFT SUMMARY PT IS ALERT AND ORIENTED TIMES 4 . PT ADMITTED FOR MULTIFOCAL BILATERAL PNEUMONIA.. PT IS DNR. PT IS RECEPTIVE TO CARE AND APPEARED TO SLEEP THROUGH MOST OF SHIFT WITH EXCEPTION TO GETTING HS MEDICATION. INTERIANO DRAINING TO GRAVITY.. CALL LIGHT WITHIN REACH, RAILS TIMES 2, BED IN LOW POSITION.
[2025-07-11 05:07] VITALS: BP 116/56
[2025-07-11 05:11] LABS: Anion Gap 9.0 mmol/L (3-11); Blood Urea Nitrogen 25.0 mg/dL (8-24); CO2, Blood 26.0 mmol/L (21-32); Calcium, Blood 8.5 mg/dL (8.5-10.1); Chloride, Blood 104.0 mmol/L (98-108); Creatinine, Blood 1.14 mg/dL (0.60-1.20); Glucose, Blood 100.0 mg/dL (70-99); Potassium, Blood 4.2 mmol/L (3.5-5.5); Sodium, Blood 135.0 mmol/L (136-145)
[2025-07-11 07:19] VITALS: BP 133/66
[2025-07-11 11:44] VITALS: BP 137/103
[2025-07-11] MEDS ORDERED: AMOCLA875 PO (11:49)
[2025-07-11] MEDS ORDERED: METO50ER PO (11:50)
[2025-07-11] MEDS ORDERED: POTA10T PO (11:53)
[2025-07-11] MEDS ORDERED: VISBIOME 112.51 EACH PO (11:53)
[2025-07-11] MEDS ORDERED: MICONAZOLE NIT130 GM TOP (11:58)
--- NOTE | 2025-07-11 16:25 | NUR ---
ASSUMED CARE OF PT. PT A/O X 2-3 FORGETFUL, PT WAS ASSISTED TO CHAIR FOR BREAKFAST AND IS FIXATED ON WHAT TIME HE WILL BE GOING BACK TO [facility]. PT TO BE TRANSFERED SOMETIME THIS MORNING. PT UP WITH AID IN [place] WALKED AROUND WHOLE 3 FLOOR, PT NEEDED TO BE PUT OPN 8L NC BUT JASON WELL CONSIDERING PREVIOUSDAYS PT TO BE TRANSFERED AT 1500 [facility]UA WHEELCHAIR TRANSPORT.
--- NOTE | 2025-07-11 16:29 | NUR ---
[facility] DELIVERED O2 O2 BROUGHT TO ROOM FOR TRANSFER, PT O2 SET UP IN PROGRESS AT [facility]. 1500 PT DISCHARGED
== END 2025-07-11 15:35 | disposition home or self-care (01) | DRG 871 ==
LOC: ER 10:07 → MEDS 13:33
PROVIDERS: Emergency Medicine; Internal Medicine; ADMIT Internal Medicine
PROC: 3E03329 Introduction of Other Anti-infective into Peripheral Vein, Percutaneous Approach (ICD-10-PCS; principal; 2025-07-06)
PROC: 0T9B70Z Drainage of Bladder with Drainage Device, Via Natural or Artificial Opening (ICD-10-PCS; 2025-07-06)
DX: A41.9 Sepsis, unspecified organism (principal); I50.33 Acute on chronic diastolic (congestive) heart failure; J18.9 Pneumonia, unspecified organism; J96.01 Acute respiratory failure with hypoxia; E87.1 Hypo-osmolality and hyponatremia; N39.0 Urinary tract infection, site not specified; I48.0 Paroxysmal atrial fibrillation; D63.8 Anemia in other chronic diseases classified elsewhere; R29.6 Repeated falls; Z66 Do not resuscitate; H91.90 Unspecified hearing loss, unspecified ear; D50.9 Iron deficiency anemia, unspecified; Z99.81 Dependence on supplemental oxygen; N40.1 Benign prostatic hyperplasia with lower urinary tract symptoms; R33.8 Other retention of urine; N18.30 Chronic kidney disease, stage 3 unspecified; D63.1 Anemia in chronic kidney disease; I25.2 Old myocardial infarction; Z87.442 Personal history of urinary calculi
CPT/HCPCS: 36415; 71045; 71260; 80048; 81001; 82728; 82803; 83540; 83550; 83605; 83735; 83880; 84100; 84484; 85025; 85027; 85379; 87040; 87086; 87637; 93005; 93010; 93308; 93321; 94760; 94761; 97110; 97116; 97161; 97165; 97530; 99285-25; A9270; J0456; J0696; J1650; J1750; J1938; J3475; J3480; J7050; J7060; Q9967